=== PATIENT | female | born 1955 | race Caucasian/White ===

== ENCOUNTER → 2018-02-19 | Outpatient (CLI) | payer MEDICAID | END | disposition home or self-care (01) | LOC: PCVCCLINIC 14:51 | DX: I25.10 Atherosclerotic heart disease of native coronary artery without angina pectoris (principal); I42.9 Cardiomyopathy, unspecified; I10 Essential (primary) hypertension; E78.00 Pure hypercholesterolemia, unspecified; R94.31 Abnormal electrocardiogram [ECG] [EKG]; Z79.899 Other long term (current) drug therapy; F17.210 Nicotine dependence, cigarettes, uncomplicated; Z88.0 Allergy status to penicillin | CPT/HCPCS: 93005; G0463 ==

== ENCOUNTER → 2018-11-11 | Outpatient (CLI) | payer MEDICAID | END | disposition home or self-care (01) | LOC: PCVCCLINIC 14:51 | PROVIDERS: ATTEND Internal Medicine Cardiovascular Disease | DX: I25.10 Atherosclerotic heart disease of native coronary artery without angina pectoris (principal); R55 Syncope and collapse; R94.31 Abnormal electrocardiogram [ECG] [EKG]; R06.09 Other forms of dyspnea; I10 Essential (primary) hypertension; I42.9 Cardiomyopathy, unspecified; E78.5 Hyperlipidemia, unspecified; F17.200 Nicotine dependence, unspecified, uncomplicated; Z88.0 Allergy status to penicillin; Z79.899 Other long term (current) drug therapy | CPT/HCPCS: 36415; 80061; 93005; G0463 ==

== ENCOUNTER → 2019-01-06 | Outpatient (CLI) | payer MEDICAID ==
--- NOTE | 2019-01-06 16:13 | PCVCIMAG ---
APPROVED REPORT Study performed: 01/06/2019 15:06:58 EXAM: Comprehensive 2D, Doppler, and color-flow Echocardiogram Patient Location: Echo lab Room #: 3Status: routine BSA: 1.84 HR: 82 bpmBP: 184/120 mmHg Rhythm: NSR Other Information Study Quality: Adequate Risk Factors: Cardiac Risk Factors: HTN Indications Dyspnea CAD Cardiomyopathy Hypertension/HDD 2D Dimensions IVSd: 10.32 (7-11mm)LVOT Diam: 20.33 (18-24mm) LVDd: 44.03 mm PWd: 9.65 (7-11mm)Ascending Ao: 35.72 (22-36mm) LVDs: 27.86 (25-40mm) Left Atrium: 35.60 (27-40mm) Aortic Root: 28.22 mm LV Single Plane 4CH: 54.54 % LV Single Plane 2CH: 54.97 % Biplane EF: 55.5 % Volumes Left Atrial Volume (Systole) Single Plane 4CH: 43.56 mLSingle Plane 2CH: 39.26 mL Biplane LA Volume: 43.00 mLLA ESV Index: 23.00 mL/m2 Aortic Valve AoV Peak Russell.: 1.31 m/s AO Peak Gr.: 6.89 mmHgLVOT Max P.47 mmHg LVOT Max V: 0.93 m/s MANISHA Vmax: 2.30 cm2 Mitral Valve E/A Ratio: 0.6 MV Decel. Time: 137.74 ms MV E Max Russell.: 0.56 m/s MV A Russell.: 0.98 m/s IVRT: 136.10 ms TDI E/Lateral E': 11.20E/Medial E': 14.00 Medial E' Russell.: 0.04 m/s Lateral E' Russell.: 0.05 m/s Pulmonary Valve PV Peak Russell.: 0.96 m/sPV Peak Gr.: 3.69 mmHg Pulmonary Vein P Vein S: 0.60 m/sP Vein A: 0.41 m/s P Vein D: 0.33 m/sP Vein A Dur.: 103.8 msec P Vein S/D Ratio: 1.82 Tricuspid Valve TR Peak Russell.: 2.18 m/s TR Peak Gr.: 19.02 mmHg TV Vmax: 0.58 m/sPA Pressure: 26.00 mmHg Left Ventricle The left ventricle is normal size. There is normal LV segmental wall motion. There is normal left ventricular wall thickness. Left ventricular systolic function is normal. The left ventricular ejection fraction is within the normal range. LVEF is 55-60%. Mild diastolic dysfunction is present (impaired relaxation pattern). Right Ventricle The right ventricle is normal size. The right ventricular systolic function is normal. Atria The left atrium size is normal. The right atrium size is normal. Aortic Valve Aortic valve is trileaflet. The aortic valve is normal in structure and function. No aortic regurgitation is present. There is no aortic valvular stenosis. Mitral Valve The mitral valve is normal in structure. There is no mitral valve regurgitation noted. No evidence of mitral valve stenosis. Tricuspid Valve The tricuspid valve is normal in structure. Trace tricuspid regurgitation with a PA pressure of 26 mmHg. Pulmonic Valve The pulmonary valve is normal in structure. There is no pulmonic valvular regurgitation. Great Vessels The aortic root is normal in size. The ascending aorta is normal in size. Aortic arch is normal in caliber. IVC is normal in size and collapses >50% with inspiration. Pericardium There is no pericardial effusion. There is no pleural effusion. <Conclusion> The left ventricle is normal size. There is normal left ventricular wall thickness. Left ventricular systolic function is normal. Mild diastolic dysfunction is present (impaired relaxation pattern). The right ventricle is normal size. The left atrium size is normal. The aortic valve is normal in structure and function. There is no mitral valve regurgitation noted. Trace tricuspid regurgitation with a PA pressure of 26 mmHg.
== END | disposition home or self-care (01) ==
LOC: PCVCIMAG 15:11
PROVIDERS: ATTEND Internal Medicine Cardiovascular Disease
DX: I25.10 Atherosclerotic heart disease of native coronary artery without angina pectoris (principal); R06.00 Dyspnea, unspecified; I42.9 Cardiomyopathy, unspecified; I10 Essential (primary) hypertension; R55 Syncope and collapse
CPT/HCPCS: 93306

== ENCOUNTER → 2019-01-20 | Outpatient (CLI) | payer MEDICAID | END | disposition home or self-care (01) | LOC: PCVCCLINIC 15:31 | PROVIDERS: ATTEND Internal Medicine Cardiovascular Disease | DX: I10 Essential (primary) hypertension (principal); I25.10 Atherosclerotic heart disease of native coronary artery without angina pectoris; Z88.0 Allergy status to penicillin | CPT/HCPCS: 36415 ==

== ENCOUNTER → 2019-02-18 | Outpatient (CLI) | payer MEDICAID | END | disposition home or self-care (01) | LOC: PCVCCLINIC 14:50 | PROVIDERS: ATTEND Internal Medicine Cardiovascular Disease | DX: R55 Syncope and collapse (principal); I25.10 Atherosclerotic heart disease of native coronary artery without angina pectoris; I10 Essential (primary) hypertension; E78.5 Hyperlipidemia, unspecified; F17.200 Nicotine dependence, unspecified, uncomplicated; Z88.8 Allergy status to other drugs, medicaments and biological substances; Z88.0 Allergy status to penicillin; Z79.899 Other long term (current) drug therapy | CPT/HCPCS: 93005; G0463 ==

== ENCOUNTER → 2019-03-06 | Outpatient (CLI) | payer MEDICAID ==
[~2019-03-06] MED LIST: REGADENOSON 0.4 MG/5 ML DISP.SYRIN. IV ONE
--- NOTE | 2019-03-09 09:42 | PCVCIMAG ---
APPROVED REPORT Imaging Protocol: Rest Tc-99m/Stress Tc-99m 1 day Study performed: 03/06/2019 14:20:42 Indication: CAD , Chest pain, Syncope, Takatsubo Dx Patient Location: Out-Patient Stress Nurse: Diana Hassan RN, Arelis Sal RN HI Tech:AROLDO Hogan Ht: 5 ft 8 in Wt: 159 lbs BSA: 1.85 m2 HR: 95 bpm BP: 100/56 mmHg BMI: 24.17 Rhythm: Sinus Rhythm, nonspecific ST abnormalities Medical History Medical History: HTN, Hyperlipidemia, Current Smoker, [place] Medications: Xanax, Carvedilol, [place], Lisinopril Allergies: None relevant to this exam Cardiac Risk Factors: Age Pretest Chest Pain Characteristics: No chest pain Exercise History: Sedentary Physical Disabilities: Back Meds Held (24 hrs): Carvedilol Resting Data Rest SPECT myocardial perfusion imaging was performed in supine position 45 minutes following the intravenous injection of 10.3 mCi of Tc-99m Sestamibi. Time of rest injection: 1330 Date: 03/06/2019 Administration Route: IV Administration Site: Right Hand Pharmacologic Stress Pharmacologic stress test was performed by injecting Regadenoson 0.4 mg IV push over 10-15 seconds immediately followed by the intravenous injection of 34.4 mCi of Tc-99m Sestamibi. Time of stress injection: 1500 Date: 03/06/2019 Administration Route: IV Administration Site: Right Hand Gated Stress SPECT was performed 45 minutes after stress injection. The images were gated to evaluate regional wall motion and calculate left ventricular ejection fraction. Stress Test Details Stress Test: Pharmacologic stress testing performed using 0.4 mg of regadenoson per 5 mL given IV over 10 seconds. Reason for pharmacologic stress test: back issues. HRMax Heart Rate (APMHR): 159 bpm Resting HR: 95 bpmTarget HR (85% APMHR): 135 bpm Max HR Achieved: 109 bpm % of APMHR: 68 Recovery HR: 100 bpm BP Resting BP: 100/56 mmHg Max BP: 103/53 mmHg Recovery BP: 82/52 mmHg ECG Resting ECG: Sinus Rhythm, nonspecific ST abnormalities Stress ECG: Sinus Rhythm, nonspecific ST-T abnormalities ST Change: Non-ischemic Arrhythmia: PVC's Recovery ECG: Sinus Tachycardia Clinical Reason for Termination: Completed protocol Stress Symptoms: Dyspnea, Leg Fatigue, Leg Heaviness, Lightheaded, Low BP Exercise duration: 0 min 55 sec Symptoms resolved with caffeine. Study Quality Study: Good Artifact: Mild Breast artifact Study Data Post stress, the left ventricular ejection was 67%.. SSS: 5 SRS: 8 SDS: 0 Perfusion There is a small area of mildly reduced uptake in the apical segment of the anterior wall which is seen on the stress images as well as the resting images. This area thickens and moves normally and is most consistent with attenuation artifact. Wall Motion Normal left ventricular wall motion. Nuclear Conclusion ECG Findings: negative for ischemia Clinical Findings: non-diagnostic Nuclear Findings: negative for ischemia Exercise Capacity: not assessed Left Ventricular Function: normal Risk Study: low This study is of low probability for inducible ischemia or prior infarct. Normal global and segmental LV systolic function. Artifact: Mild Breast artifact
== END | disposition home or self-care (01) ==
LOC: PCVCIMAG 13:15
PROVIDERS: ATTEND Internal Medicine Cardiovascular Disease
DX: I25.10 Atherosclerotic heart disease of native coronary artery without angina pectoris (principal); R07.9 Chest pain, unspecified; R55 Syncope and collapse; I51.81 Takotsubo syndrome
CPT/HCPCS: 78452; 93017; A9500; J2785